=== PATIENT | male | born 1940 | race Caucasian/White ===

== ENCOUNTER 2022-06-04 09:12 | Outpatient (CLI) | payer MEDICARE, OTHER ==
[2022-06-04] MEDS ORDERED: Magnevist 469MG/ML 20 ML VIAL ONE (13:40)
== END 2022-06-04 09:13 | disposition home or self-care (01) ==
LOC: CSHMRI 09:12
PROVIDERS: ATTEND Family Medicine
DX: R93.5 Abnormal findings on diagnostic imaging of other abdominal regions, including retroperitoneum (principal); K86.2 Cyst of pancreas
CPT/HCPCS: 74183; A9579

== ENCOUNTER 2024-04-05 14:15 | Outpatient (CLI) | payer MEDICARE, OTHER | END 2024-04-05 14:16 | disposition home or self-care (01) | LOC: CSHRAD 14:15 | PROVIDERS: ATTEND Internal Medicine Hematology & Oncology | DX: C25.1 Malignant neoplasm of body of pancreas (principal); C78.7 Secondary malignant neoplasm of liver and intrahepatic bile duct; D50.9 Iron deficiency anemia, unspecified; D63.1 Anemia in chronic kidney disease; N18.31 Chronic kidney disease, stage 3a; D50.8 Other iron deficiency anemias; R97.8 Other abnormal tumor markers; J90 Pleural effusion, not elsewhere classified; Z95.828 Presence of other vascular implants and grafts | CPT/HCPCS: 71046 ==